=== PATIENT | male | born 1960 | race Caucasian/White ===

== ENCOUNTER 2021-10-10 13:54 | Emergency (ER) | payer OTHER ==
[~2021-10-10] VITALS: Ht 180.3 cm; Wt 83.0 kg
[2021-10-10] MEDS ORDERED: ORPHENADRINE 60 MG/2 ML (NORFLEX) AMP (ED ONLY) IM STA (14:10)
--- NOTE | 2021-10-10 14:10 | ED Lower Extremity ---
General Chief Complaint: Lower Extremity Stated Complaint: LT LEG PAIN History of Present Illness Date Seen by Provider: Oct 10, 2021 Time Seen by Provider: 14:10 Initial Comments 61-year-old male presents with left leg pain. Is located on the lateral aspect of his leg from about his mid lower leg all the way up to his hip and little bit to his back. Patient reports he has had a previous episode. States that at that time he did an MRI of his back and showed a little bit of nerve compression. [facility] "[facility]" patient is adamant that he does not want any narcotic pain medicine as he has had addiction problems in the past. Patient denies any numbness or tingling. Pain gets little bit worse if he stretches his leg out straight. Allergies and Home Medications Allergies Coded Allergies: No Known Drug Allergies (Unverified , 10/10/21) Patient Home Medication List Home Medication List Reviewed: Yes Cyclobenzaprine HCl (Cyclobenzaprine HCl) 10 Mg Tablet, 10 MG PO Q8H PRN for SPASMS Prescribed by: ANA CUETO on 10/10/21 1418 Review of Systems Constitutional: no symptoms reported Respiratory: no symptoms reported Cardiovascular: no symptoms reported Gastrointestinal: no symptoms reported Genitourinary: no symptoms reported Musculoskeletal: see HPI Skin: no symptoms reported Psychiatric/Neurological: No Symptoms Reported Physical Exam Vital Signs Capillary Refill : Height, Weight, BMI Height: '" Weight: lbs. oz. kg; BMI Method: General Appearance: no apparent distress Cardiovascular: normal peripheral pulses, regular rate, rhythm Respiratory: lungs clear Gastrointestinal: non tender, soft Hips: left hip soft tissue tenderness Legs: left leg soft tissue tenderness Ankles: bilateral ankle non-tender Reflexes: 2+ knee (R), 2+ knee (L) Neurologic/Tendon: normal sensation, normal motor functions, normal tendon functions Neurologic/Psychiatric: alert, normal mood/affect, oriented x 3 Skin: normal color, warm/dry Progress/Results/Core Measures Results/Orders My Orders Orders - ANA CUETO DO Ketorolac Injection (Toradol Injection) (10/10/21 14:15) Orphenadrine Inj (Ed Only) (Norflex Inje (10/10/21 14:10) Progress Progress Note : Progress Note Patient symptoms pretty consistent with static it. This time is very unlikely that it would be due to it DVT since the pain is more lateral and goes from the lateral mid lower leg all the way up to the lateral hip and into the left low back. Patient is given a shot of Toradol and Norflex. I will prescribe him some Flexeril. Patient should follow-up with a primary care provider for further outpatient management. Can also use topical Voltaren cream and topical lidocaine. Departure Impression Primary Impression: Lumbago with sciatica, left side Qualified Codes: M54.42 - Lumbago with sciatica, left side Disposition: 01 HOME, SELF-CARE Condition: Stable Departure-Patient Inst. Referrals: TODD MAXWELL APRN (PCP) Primary Care Physician [facility] (Family) Primary Care Physician Patient Instructions: Sciatica ED, Sciatica Exercises Add. Discharge Instructions: 4% topical lidocaine with menthol, cream gel or patch. Use as directed on package Voltaren/diclofenac cream use as directed on pack Warm moist heat left low back Follow-up with your primary care provider/[facility] for further outpatient management All discharge instructions reviewed with patient and/or family. Voiced understanding. Scripts Cyclobenzaprine HCl (Cyclobenzaprine HCl) 10 Mg Tablet 10 MG PO Q8H PRN for SPASMS, #15 TAB 0 Refills Prov: ANA CUETO DO 10/10/21 ANA CUETO DO Oct 10, 2021 14:10
[2021-10-10] MEDS ORDERED: KETOROLAC 30 MG/ML VIAL IM ONE (14:15)
[2021-10-10] MEDS ORDERED: CYCL10TA25 PO (14:18)
[2021-10-10 14:30] VITALS: BP 127/76
== END 2021-10-10 14:30 | disposition home or self-care (01) ==
LOC: EDUNIT# 13:54 → ER FS 13:58
DX: M54.42 Lumbago with sciatica, left side (principal)
CPT/HCPCS: 99284